=== PATIENT | male | born 1990 | race Caucasian/White ===

== ENCOUNTER 2023-11-20 19:17 | Emergency (ER) | payer OTHER | END 2023-11-20 21:35 | disposition home or self-care (01) | LOC: LB.ED 19:17 | DX: S82.61XA Displaced fracture of lateral malleolus of right fibula, initial encounter for closed fracture (principal); W00.0XXA Fall on same level due to ice and snow, initial encounter | CPT/HCPCS: 73600-RT; 73630-RT; 99283 ==